=== PATIENT | male | born 1995 | race Caucasian/White ===

== ENCOUNTER 2020-02-13 18:11 | Emergency (ER) | payer OTHER ==
[~2020-02-13] VITALS: Ht 185.4 cm; Wt 74.8 kg
[2020-02-13] MEDS ORDERED: ADDERALL 10 MG10 MG PO (18:59)
[2020-02-13] MEDS ORDERED: PROSCAR 5MG TABL5 M1 PO (18:59)
[2020-02-13] MEDS ORDERED: ADDERALL XR 1515 MG PO (18:59)
[2020-02-13 19:20] LABS: ABSOLUTE NEUTROPHILS 8.5 thou/uL (1.4-8.2); BASOPHILS 0.3 % (0.0-2.0); EOSINOPHILS 0.2 % (0.0-3.0); HEMATOCRIT 44.7 % (42.0-52.0); HEMOGLOBIN 15.7 gm/dL (14.0-18.0); LYMPHOCYTES 9.9 % (24.0-44.0); MCH 30.7 pg (26.0-34.0); MCV 87.7 fL (80.0-100.0); MONOCYTES 4.1 % (1.0-8.0); PLATELET COUNT 249 thou/uL (150-400); POLYS 85.5 % (36.0-66.0); WBC 9.9 thou/uL (4.0-11.0)
[2020-02-13 19:28] LABS: CALCIUM 9.1 mg/dL (8.5-10.1); CREATININE 1.2 mg/dL (0.7-1.3); POTASSIUM 3.7 mmol/L (3.5-5.1)
[2020-02-13 19:34] LABS: ALBUMIN 4.4 g/dL (3.4-5.0); TOTAL BILIRUBIN 1.2 mg/dL (0.2-1.0); TOTAL PROTEIN 7.6 g/dL (6.4-8.2)
[2020-02-13 21:07] LABS: URINE BILIRUBIN NEGATIVE (Negative); URINE BLOOD 3+ (Negative); URINE CLARITY CLEAR; URINE COLOR YELLOW; URINE GLUCOSE-RANDOM* NEGATIVE (Negative); URINE KETONES NEGATIVE (Negative); URINE LEUKOCYTES-REFLEX NEGATIVE (Negative); URINE NITRITE-REFLEX NEGATIVE (Negative); URINE PROTEIN (DIPSTICK) 1+ (Negative); URINE SPECIFIC GRAVITY <= 1.005 (1.005-1.035); URINE UROBILINOGEN 0.2 E.U./dl (0.2-1.0)
[2020-02-13 21:42] LABS: BACTERIA-REFLEX 1-9 Few /HPF (None Seen); CASTS None Seen /LPF (None Seen); CRYSTALS None Seen /LPF (None Seen); SQUAMOUS None Seen /LPF (0-3); URINE RBC 3-10 Few /HPF (0-2); URINE WBC-REFLEX 0-5 Rare /HPF (0-5)
[2020-02-13 21:57] VITALS: BP 114/66
== END 2020-02-13 22:23 | disposition home or self-care (01) ==
LOC: ER 18:11
PROVIDERS: Emergency Medicine
DX: N20.0 Calculus of kidney (principal); Z79.899 Other long term (current) drug therapy